=== PATIENT | male | born 1965 | race Caucasian/White ===

== ENCOUNTER → 2018-01-10 10:43 | Outpatient (CLI) | payer OTHER, SELFPAY ==
--- NOTE | 2018-01-10 10:49 | ECHOD_ITS ---
Reason For Study: Abn EKG Procedure This was a 2D Doppler, Color Flow transthoracic echocardiogram. Exam performed in department. Left Ventricle Normal LV size. Left ventricular systolic function is normal. The estimated ejection fraction is 55 %. Normal diastology for age. No regional wall motion abnormalities noted. Right Ventricle Normal RV size. Normal systolic function. Atria The left atrium is mildly enlarged. Normal right atrium. No doppler evidence for ASD. Mitral Valve There is no mitral annular calcification. Normal mitral valve. Mild (1+) mitral valve insufficiency. Tricuspid Valve Normal tricuspid valve. Trivial tricuspid valve insufficiency. Right ventricular systolic pressure estimated to be 22 mmHg. Aortic Valve Trisinus/trileaflet aortic valve. Normal aortic valve. Pulmonic Valve The pulmonic valve is not well visualized. Great Vessels Normal sized aortic root. Pericardium/Pleural No pericardial effusion. MMode/2D Measurements & Calculations LVIDd: 5.5 cm IVSd: 1.1 cm Ao root diam: 3.0 cm LVIDs: 3.4 cm LVPWd: 0.94 cm RVDd: 4.3 cm FS: 39.1 % LAV(MOD-bp): 64.5 ml EDV(MOD-sp4): 89.8 ml SV(MOD-sp4): 56.5 ml LAV(MOD-bp) Indexed: 31.6 ml/m2 ESV(MOD-sp4): 33.3 ml LAV(MOD-sp2): 77.0 ml EF(MOD-sp4): 62.9 % LAV(MOD-sp4): 48.9 ml LA A4 area: 18.8 cm2 RA A4 area: 15.4 cm2 Doppler Measurements & Calculations MV E max noam: 54.7 cm/sec Lat Peak E' Noam: 12.9 cm/sec Med Peak E' Noam: 6.8 cm/sec MV A max noam: 42.1 cm/sec E/E' lat: 4.2 E/E' med: 8.1 MV E/A: 1.3 Ao V2 max: 140.1 cm/sec LV V1 max: 93.8 cm/sec PA V2 max: 108.6 cm/sec Ao max P.9 mmHg LV V1 max P.5 mmHg Ao V2 mean: 98.2 cm/sec Ao mean P.2 mmHg Ao V2 VTI: 28.9 cm TR max noam: 216.1 cm/sec TR max P.7 mmHg Interpretation Summary Left ventricular systolic function is normal. The estimated ejection fraction is 55 %. The left atrium is mildly enlarged. Mild (1+) mitral valve insufficiency. Trivial tricuspid valve insufficiency. Right ventricular systolic pressure estimated to be 22 mmHg. Normal diastology for age. Ordering Physician: Nelly Mercer Referring Physician: Nelly Mercer Performed By: Jaqueline Duque, DEISI, RVT
== END ==
PROVIDERS: Family Provider Family Medicine; PCP Family Medicine; Visit Provider Family Medicine
DX: R94.31 Abnormal electrocardiogram [ECG] [EKG] (principal)
CPT/HCPCS: 93306

== ENCOUNTER → 2018-08-25 09:09 | Outpatient (CLI) | payer OTHER, SELFPAY ==
[2018-05-15 08:21] VITALS: BMI 29.9
[2018-08-25 11:23] LABS: AST(SGOT) 16 U/L (15-37); Alanine Aminotransfer ALT/SGPT 22 U/L (16-61); Anion Gap 7 (5-15); BUN 20 mg/dL (7-18); BUN/Creat Ratio 16.7 RATIO (10-20); Calcium,Total 8.6 mg/dL (8.5-10.1); Chloride 104 mmol/L (98-107); Cholesterol 205 mg/dL (200); EST Glomerular Filtration Rate 67 mL/min (>60); Est Glom Filt Rate - Afr Amer 81 mL/min (>60); Glucose 83 mg/dL (74-106); High Density Lipoprotein 36 mg/dL; Potassium 3.9 mmol/L (3.5-5.1); Sodium Level 139 mmol/L (136-145); Triglycerides 285 mg/dL; Very Low Density Lipoprotein 57 mg/dL (5-40)
== END ==
PROVIDERS: Family Provider Family Medicine; PCP Family Medicine; Referring Provider Family Medicine; Visit Provider Family Medicine
DX: I10 Essential (primary) hypertension (principal); E78.00 Pure hypercholesterolemia, unspecified
CPT/HCPCS: 36415; 80048; 80061; 84450; 84460

== ENCOUNTER → 2018-12-09 10:22 | Outpatient (CLI) | payer OTHER, SELFPAY ==
[2018-10-20 10:56] VITALS: BMI 29.9
[2018-12-09 12:37] LABS: Anion Gap 11 (5-15); BUN 20 mg/dL (7-18); BUN/Creat Ratio 16.7 RATIO (10-20); Calcium,Total 8.9 mg/dL (8.5-10.1); Chloride 103 mmol/L (98-107); Cholesterol 214 mg/dL (200); EST Glomerular Filtration Rate 67 mL/min (>60); Est Glom Filt Rate - Afr Amer 81 mL/min (>60); Glucose 88 mg/dL (74-106); High Density Lipoprotein 41 mg/dL; Potassium 3.8 mmol/L (3.5-5.1); Sodium Level 140 mmol/L (136-145); Triglycerides 245 mg/dL; Very Low Density Lipoprotein 49 mg/dL (5-40)
== END ==
PROVIDERS: Family Provider Family Medicine; PCP Family Medicine; Visit Provider Family Medicine
DX: I10 Essential (primary) hypertension (principal)
CPT/HCPCS: 36415; 80048; 80061

== ENCOUNTER → 2019-12-25 10:08 | Outpatient (CLI) | payer OTHER, SELFPAY ==
[2019-08-31 09:29] VITALS: BMI 29.9
[2020-01-13 15:09] LABS: BUN 16 mg/dL (7-18); BUN/Creat Ratio 14.7 RATIO (10-20); Calcium,Total 9.2 mg/dL (8.5-10.1); Creatinine, Serum 1.09 mg/dL (0.70-1.30); EST Glomerular Filtration Rate 74 mL/min (>60); Est Glom Filt Rate - Afr Amer 90 mL/min (>60); Glucose 98 mg/dL (74-106); Sodium Level 139 mmol/L (136-145)
[2020-01-13 15:10] LABS: Anion Gap 5 (5-15); Chloride 106 mmol/L (98-107); Potassium 4.1 mmol/L (3.5-5.1)
== END ==
PROVIDERS: Visit Provider Family Medicine
DX: I10 Essential (primary) hypertension (principal)
CPT/HCPCS: 36415; 80048

== ENCOUNTER → 2019-12-25 | Outpatient (CLI) | payer OTHER, SELFPAY ==
[2019-08-31 09:29] VITALS: BMI 29.9
== END | disposition home or self-care (01) ==
LOC: MFPLAB 09:59
PROVIDERS: Visit Provider Family Medicine
DX: I10 Essential (primary) hypertension (principal)

== ENCOUNTER → 2020-09-22 13:20 | Outpatient (CLI) | payer OTHER, SELFPAY ==
[2020-09-22 16:15] LABS: Anion Gap 8 (5-15); BUN 17 mg/dL (7-18); BUN/Creat Ratio 13.9 RATIO (10-20); Calcium,Total 9.2 mg/dL (8.5-10.1); Chloride 100 mmol/L (98-107); Cholesterol 257 mg/dL (200); Creatinine, Serum 1.22 mg/dL (0.70-1.30); EST Glomerular Filtration Rate 65 mL/min (>60); Est Glom Filt Rate - Afr Amer 79 mL/min (>60); Glucose 85 mg/dL (74-106); High Density Lipoprotein 42 mg/dL; Sodium Level 136 mmol/L (136-145); Triglycerides 215 mg/dL; Very Low Density Lipoprotein 43 mg/dL (5-40)
== END ==
PROVIDERS: PCP Family Medicine; Referring Provider Family Medicine; Visit Provider Family Medicine
DX: Z00.00 Encounter for general adult medical examination without abnormal findings (principal)
CPT/HCPCS: 36415; 80048; 80061

== ENCOUNTER → 2021-12-05 | Outpatient (CLI) | payer OTHER, SELFPAY ==
--- NOTE | 2021-12-05 | CYSPIN_PTH ---
PATIENT: STEPHAN VIRAMONTES LOC: [facility] U#:[id number] AGE/SX: 56/M ROOM: RE12/05/[address]: Dr. Charlie Tavarez MD : 1965 BED: DIS: 12/05/2021 SPEC #: [id number] RECD: 12/05/21 15:00 STATUS: GHADA CROW #: [id number] NEREIDA: 12/05/21 00:[address]: Charlie Tavarez DEPT: CYTOLOGY RECD BY: Chalo Boateng ENTERED: 12/06/21 09:17 SP TYPE: CYSPIN FL OTHR DR: Dr. Nelly Mercer MD Tissues: Urine Procedures: Pap Stain (control) Special Stain Group II Cytospin Fluid HEADER OPERATION: Not noted PRE-OP DIAGNOSIS: Asymptomatic microscopic hematuria TISSUE SUBMITTED: Urine for cytology DIAGNOSIS CYTOLOGY Urine for cytology (cytospin): Negative for malignant cells. See comment. SJ:vinny 12/06/2021 COMMENT The specimen is paucicellular. A few degenerated urothelial cells and red blood cells are also noted. Clinical correlation and appropriate follow up are necessary. CYTOLOGY STUDY Slides are reviewed. CYTOLOGY GROSS Received is 60 ml of dark yellow cloudy fluid labeled with the patient's name and and designated per the requisition as urine. Submitted for cytology preparation. / vinny 12/06/2021 TC:5 CPT: 40331
[2021-12-05 16:54] LABS: Cytology, Body Fluid / CSF SEE PATHOLOGY REPORT
== END | disposition home or self-care (01) ==
LOC: LABSPEC 16:41
PROVIDERS: PCP Family Medicine; Visit Provider Urology
DX: R31.21 Asymptomatic microscopic hematuria (principal)
CPT/HCPCS: 88108; 88313

== ENCOUNTER → 2022-04-09 | Outpatient (CLI) | payer OTHER, SELFPAY ==
[2022-04-09 12:37] LABS: AST(SGOT) 21 U/L (15-37); Alanine Aminotransfer ALT/SGPT 21 U/L (16-61); Anion Gap 9 (5-15); BUN 21 mg/dL (7-18); BUN/Creat Ratio 18.3 RATIO (10-20); Calcium,Total 9.2 mg/dL (8.5-10.1); Chloride 102 mmol/L (98-107); Cholesterol 211 mg/dL (200); Creatinine, Serum 1.15 mg/dL (0.70-1.30); EST Glomerular Filtration Rate 69 mL/min (>60); Est Glom Filt Rate - Afr Amer 84 mL/min (>60); Glucose 94 mg/dL (74-106); High Density Lipoprotein 43 mg/dL; Potassium 4.2 mmol/L (3.5-5.1); Sodium Level 138 mmol/L (136-145); Triglycerides 144 mg/dL; Very Low Density Lipoprotein 29 mg/dL (5-40)
== END | disposition home or self-care (01) ==
LOC: MFPLAB 10:36
PROVIDERS: PCP Family Medicine; Visit Provider Family Medicine
DX: E78.00 Pure hypercholesterolemia, unspecified (principal); I10 Essential (primary) hypertension
CPT/HCPCS: 36415; 80048; 80061; 84450; 84460

== ENCOUNTER 2022-10-24 11:45 | Outpatient (CLI) | payer OTHER, SELFPAY ==
[2022-10-24 14:20] LABS: AST(SGOT) 17 U/L (15-37); Alanine Aminotransfer ALT/SGPT 20 U/L (16-61); Anion Gap 7 (5-15); BUN 21 mg/dL (7-18); BUN/Creat Ratio 19.1 RATIO (10-20); Calcium,Total 9.4 mg/dL (8.5-10.1); Chloride 102 mmol/L (98-107); Cholesterol 190 mg/dL (200); EST Glomerular Filtration Rate 73 mL/min (>60); Est Glom Filt Rate - Afr Amer 88 mL/min (>60); Glucose 85 mg/dL (74-106); High Density Lipoprotein 36 mg/dL; PSA,Total - Annual Screen 4.41 ng/mL (0.00-4.00); Potassium 3.9 mmol/L (3.5-5.1); Sodium Level 139 mmol/L (136-145); Triglycerides 225 mg/dL; Very Low Density Lipoprotein 45 mg/dL (5-40)
== END 2022-10-24 23:59 | disposition home or self-care (01) ==
LOC: MFPLAB 11:48
PROVIDERS: PCP Family Medicine; Referring Provider Family Medicine; Visit Provider Family Medicine
DX: Z00.00 Encounter for general adult medical examination without abnormal findings (principal); E78.00 Pure hypercholesterolemia, unspecified; I10 Essential (primary) hypertension
CPT/HCPCS: 36415; 80048; 80061; 84153; 84450; 84460; G0103

== ENCOUNTER → 2023-06-13 | Outpatient (CLI) | payer OTHER, SELFPAY ==
[2023-06-14 13:08] LABS: PSA, Free 0.36 ng/mL; PSA, Free % 8.9 % (.)
== END | disposition home or self-care (01) ==
LOC: LAB 10:49
PROVIDERS: PCP Family Medicine; Referring Provider Urology; Visit Provider Urology
DX: R97.20 Elevated prostate specific antigen [PSA] (principal)
CPT/HCPCS: 36415; 84153; 84154

== ENCOUNTER → 2023-11-19 | Outpatient (CLI) | payer OTHER, SELFPAY ==
[2023-11-19 12:55] LABS: Protein, Urine (Random) 17.3 mg/dL (<11.9); Protein:Creat Ratio 63 mg/g CRE (0-200)
[2023-11-19 13:17] LABS: AST(SGOT) 21 U/L (15-37); Alanine Aminotransfer ALT/SGPT 19 U/L (16-61); Anion Gap 7 (5-15); BUN 17 mg/dL (7-18); BUN/Creat Ratio 14.7 RATIO (10-20); Calcium,Total 8.7 mg/dL (8.5-10.1); Chloride 104 mmol/L (98-107); Cholesterol 187 mg/dL (200); Creatinine, Serum 1.16 mg/dL (0.70-1.30); EST Glomerular Filtration Rate 68 mL/min (>60); Est Glom Filt Rate - Afr Amer 83 mL/min (>60); Glucose 99 mg/dL (74-106); High Density Lipoprotein 39 mg/dL; PSA,Total - Annual Screen 3.85 ng/mL (0.00-4.00); Potassium 3.6 mmol/L (3.5-5.1); Sodium Level 138 mmol/L (136-145); Triglycerides 190 mg/dL; Very Low Density Lipoprotein 38 mg/dL (5-40)
== END | disposition home or self-care (01) ==
LOC: MFPLAB 11:19
PROVIDERS: PCP Family Medicine; Visit Provider Family Medicine
DX: E78.00 Pure hypercholesterolemia, unspecified (principal); I10 Essential (primary) hypertension; R97.20 Elevated prostate specific antigen [PSA]
CPT/HCPCS: 36415; 80048; 80061; 82570; 84153; 84156; 84450; 84460; G0103

== ENCOUNTER → 2024-08-07 | Outpatient (CLI) | payer OTHER, SELFPAY ==
[2024-08-07 12:16] LABS: AST(SGOT) 21 U/L (15-37); Alanine Aminotransfer ALT/SGPT 30 U/L (16-61); Anion Gap 3 (5-15); BUN 19 mg/dL (7-18); BUN/Creat Ratio 17.1 RATIO (10-20); Chloride 102 mmol/L (98-107); Cholesterol 215 mg/dL (200); Creatinine, Serum 1.11 mg/dL (0.70-1.30); EST Glomerular Filtration Rate 72 mL/min (>60); Est Glom Filt Rate - Afr Amer 87 mL/min (>60); Glucose 96 mg/dL (74-106); High Density Lipoprotein 41 mg/dL; Potassium 3.9 mmol/L (3.5-5.1); Sodium Level 134 mmol/L (136-145); Triglycerides 222 mg/dL; Very Low Density Lipoprotein 44 mg/dL (5-40)
[2024-08-07 12:36] LABS: Protein, Urine (Random) 11.8 mg/dL (<11.9); Protein:Creat Ratio 62 mg/g CRE (0-200)
== END | disposition home or self-care (01) ==
LOC: MFPLAB 10:23
PROVIDERS: PCP Family Medicine; Referring Provider Family Medicine; Visit Provider Family Medicine
DX: E78.00 Pure hypercholesterolemia, unspecified (principal); I10 Essential (primary) hypertension

== ENCOUNTER → 2024-11-25 | Outpatient (CLI) | payer OTHER, SELFPAY ==
[2024-11-25 13:38] LABS: AST(SGOT) 21 U/L (<=37); Alanine Aminotransfer ALT/SGPT 12 U/L (<=46); Cholesterol 206 mg/dL (<=200); High Density Lipoprotein 34 mg/dL; Low Density Lipoprotein Calc. 137 mg/dL; PSA,Total - Annual Screen 3.71 ng/mL (0.02-4.00); Triglycerides 175 mg/dL; Very Low Density Lipoprotein 35 mg/dL (5-40); cholesterol:hdl ratio screen 6.09
[2024-11-25 16:40] LABS: Protein, Urine (Random) 14.3 mg/dL (0.0-12.0); Protein:Creat Ratio 66 mg/g CRE (0-200)
== END | disposition home or self-care (01) ==
LOC: MFPLAB 10:08
PROVIDERS: PCP Family Medicine; Referring Provider Family Medicine; Visit Provider Family Medicine
DX: E78.00 Pure hypercholesterolemia, unspecified (principal); I10 Essential (primary) hypertension; R97.20 Elevated prostate specific antigen [PSA]
CPT/HCPCS: 36415; 80061; 82570; 84153; 84156; 84450; 84460; G0103

== ENCOUNTER 2025-02-04 12:13 | Outpatient (CLI) | payer OTHER, SELFPAY ==
[2025-02-11 13:08] LABS: Testosterone, % Free 3.34 % (1.50-4.20); Testosterone, Free 14.80 ng/dL (5.00-21.00)
== END 2025-02-04 23:59 | disposition home or self-care (01) ==
LOC: MFPLAB 12:16
DX: N52.9 Male erectile dysfunction, unspecified (principal)
CPT/HCPCS: 36415; 84402; 84403